=== PATIENT | female | born 1970 | race Caucasian/White ===

== ENCOUNTER 2016-07-27 02:23 | Emergency (ER) | payer MEDICAID ==
[~2016-07-27] VITALS: Ht 162.6 cm; Wt 86.2 kg
[~2016-07-27 02:23] MED LIST: CLIN150C16 PO
--- NOTE | 2016-07-27 02:54 | NUR ---
Dr. Yoder in room for evaluation.
[2016-07-27] MEDS ORDERED: PANTOPRAZOLE SODIUM 40 MG VIAL IV ONE (03:00)
[2016-07-27 04:14] LABS: *BILIRUBIN,URIN NEGATIVE (NEGATIVE); *BLOOD, URINE NEGATIVE (NEGATIVE); *COLOR,URINE YELLOW (YELLOW); *KETONES,URINE NEGATIVE (NEGATIVE); *PROTEIN,URINE 1+ (NEGATIVE); LEUKOCYTE ESTERASE ,URINE NEGATIVE (NEGATIVE); NITRITE, URINE NEGATIVE (NEGATIVE); UGLUCOSE NEGATIVE (NEGATIVE)
[2016-07-27 04:20] LABS: *CLARITY,URINE HAZY (CLEAR)
[2016-07-27 04:22] LABS: *URINE HCG, QUAL NEGATIVE (NEGATIVE); BACTERIA,URINE MODERATE /HPF (NONE SEEN); MUCUS,URINE MODERATE /LPF (0-FEW); RBC,URINE 0-3 /HPF (0-3); SQUAMOUS EPITHELIAL CELL,UR MANY /HPF (NONE SEEN); WBC,URINE 0-3 /HPF (0-3)
--- NOTE | 2016-07-27 04:25 | NUR ---
Blood drawn by RADHA.
[2016-07-27] MEDS ORDERED: OLANZAPINE 5 MG TABLET PO ONE (04:30)
[2016-07-27] MEDS ORDERED: OLANZAPINE 5 MG TABLET ONE (04:42)
[2016-07-27] MEDS ORDERED: PANTOPRAZOLE SODIUM 40 MG VIAL ONE (04:42)
[2016-07-27 04:45] LABS: BASOPHILS # (AUTO) 0.1 K/uL (0.0-8.0); BASOPHILS % (AUTO) 0.7 % (0.0-2.0); EOSINOPHILS # (AUTO) 0.1 K/uL (0.0-0.7); EOSINOPHILS % (AUTO) 0.5 % (0.0-7.0); HEMATOCRIT 41.6 % (37-47); HEMOGLOBIN 13.7 G/DL (12.0-16.0); LYMPHOCYTES # (AUTO) 0.6 K/UL (0.8-4.8); LYMPHOCYTES % (AUTO) 5.5 % (20.5-51.5); MEAN CORPUSCULAR HEMOGLOBIN 26.5 UUG (27.0-31.0); MEAN CORPUSCULAR HGB CONC 33 g/dL (32.0-37.0); MEAN CORPUSCULAR VOLUME 80.2 FL (81.0-99.0); MONOCYTES # (AUTO) 0.2 K/UL (0.1-1.30); MONOCYTES % (AUTO) 1.7 % (0.0-11.0); NEUTROPHILS # (AUTO) 9.2 K/UL (1.8-8.9); NEUTROPHILS % (AUTO) 91.6 % (38.5-71.5); PLATELET COUNT (AUTO) 207 K/UL (150-450); RED BLOOD CELL COUNT(AUTO) 5.19 MIL/UL (4.2-5.4); WHITE BLOOD COUNT (AUTO) 10.2 K/UL (4.0-11.2)
[2016-07-27 05:12] LABS: ACETAMINOPHEN < 2.0 ug/mL (10-30); ETHANOL < 3 MG/DL (0-0)
[2016-07-27 05:16] LABS: BILIRUBIN,DIRECT 0.1 mg/dL (0.0-0.2); BILIRUBIN,TOTAL 0.3 mg/dL (0.2-1.0); CREATININE 0.8 mg/dL (0.6-1.3); POTASSIUM 3.5 mmol/L (3.5-5.1); TOTAL PROTEIN, SERUM 7.4 g/dL (6.4-8.2)
[2016-07-27 05:33] LABS: THYROID STIMULATING HORMONE 0.639 mIU/mL (0.358-3.740)
[2016-07-27 05:55] LABS: *AMPHETAMINE, URINE POSITIVE (NEGATIVE); *BARBITURATE, URINE NEGATIVE (NEGATIVE); *CANNABINOID, URINE NEGATIVE (NEGATIVE); *COCCAINE, URINE NEGATIVE (NEGATIVE); *OPIATE, URINE NEGATIVE (NEGATIVE); *PHENCYCLIDINE SCREEN,URINE NEGATIVE (NEGATIVE)
--- NOTE | 2016-07-27 07:03 | NUR ---
Aris Hurley called, states will be here in 45 minutes.
--- NOTE | 2016-07-27 07:32 | NUR ---
recieved pt in bed, easily arousable.
--- NOTE | 2016-07-27 08:06 | NUR ---
Aris Hurley from [facility] at the bedside for psych eval.
--- NOTE | 2016-07-27 08:24 | NUR ---
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
[2016-07-27 08:29] VITALS: BP 101/60
--- NOTE | 2016-07-27 08:29 | NUR ---
IV removed. Catheter intact and site benign. Pressure and 4x4 gauze applied to site. No bleeding noted.
--- NOTE | 2016-07-27 08:36 | NUR ---
Patient discharged to home in stable conditon. Written and verbal after care instructions given. Patient verbalizes understanding of instructions.
== END 2016-07-27 08:36 | disposition home or self-care (01) ==
LOC: ER 02:26
DX: F22 Delusional disorders (principal); F15.10 Other stimulant abuse, uncomplicated; F31.9 Bipolar disorder, unspecified; R33.9 Retention of urine, unspecified; F10.20 Alcohol dependence, uncomplicated; F17.200 Nicotine dependence, unspecified, uncomplicated
CPT/HCPCS: 36415; 51702; 80307; 83690; 84443; 84703; 85025; A4663; C1758; C9113; G0480; G0480-TC

== ENCOUNTER 2016-12-26 01:48 | Emergency (ER) | payer MEDICAID ==
[~2016-12-26] VITALS: Ht 162.6 cm; Wt 81.6 kg
[2016-12-26] MEDS ORDERED: NEOMY/BACITRA/POLYMYXIN B OINT UD PACKET TP ONE ×2 (03:15→03:28)
--- NOTE | 2016-12-26 03:29 | NUR ---
Pt ambulated to room with steady gait. Pt c/o sore to the bottom the her second right toe. Pt seen by Dr. Blanco. Right foot soaked with sterile water and hydrogen peroxide per Dr. Blanco. Triple antibiotic ointment and drsg applied to the second toe on right foot. Pt stable for discharge per MD. Pt given ACI. Pt verbalized understanding of dc instructions. Pt ambulated out of ER with steady gait.
[2016-12-26 03:44] VITALS: BP 133/88
== END 2016-12-26 03:26 | disposition home or self-care (01) ==
LOC: ER 01:50
DX: S91.114A Laceration without foreign body of right lesser toe(s) without damage to nail, initial encounter (principal); F17.200 Nicotine dependence, unspecified, uncomplicated; X58.XXXA Exposure to other specified factors, initial encounter; Y93.89 Activity, other specified; Y92.89 Other specified places as the place of occurrence of the external cause; Y99.8 Other external cause status
CPT/HCPCS: 99283; A4217 ×2; A4663

== ENCOUNTER 2017-09-11 05:21 | Emergency (ER) | payer BC, OTHER ==
[~2017-09-11] VITALS: Ht 162.6 cm; Wt 81.6 kg
--- NOTE | 2017-09-11 05:54 | NUR ---
Dr. Blanco at bedside for MSE.
--- NOTE | 2017-09-11 06:01 | NUR ---
Patient discharged to home in stable conditon. Written and verbal after care instructions given. Patient verbalizes understanding of instructions. Patient able to ambulate unassisted with a steady gait. Patient left with all personal belongings.
[2017-09-11 06:20] VITALS: BP 142/86
== END 2017-09-11 06:01 | disposition home or self-care (01) ==
LOC: ER 05:21
DX: L03.115 Cellulitis of right lower limb (principal); I10 Essential (primary) hypertension; F17.200 Nicotine dependence, unspecified, uncomplicated; Z88.0 Allergy status to penicillin
CPT/HCPCS: 99283; A4663

== ENCOUNTER 2017-09-13 05:43 | Emergency (ER) | payer OTHER ==
[~2017-09-13] VITALS: Ht 162.6 cm; Wt 81.6 kg
--- NOTE | 2017-09-13 06:11 | NUR ---
PT IN BED. PT AAOX4. PT PRESENTING TO ED WITH COMPLAINT OF DYSPEPSIA. LUNG ARE CLEAR BILATERALLY AND BREATH SOUNDS ARE EVEN AND UNLABORED. NO SIGNS OF DISTRESS WITNESSED AT THIS TIME.
[2017-09-13 06:46] VITALS: BP 142/88
== END 2017-09-13 06:40 | disposition home or self-care (01) ==
LOC: ER 05:46
DX: R11.0 Nausea (principal); T37.0X5A Adverse effect of sulfonamides, initial encounter; L03.115 Cellulitis of right lower limb; I10 Essential (primary) hypertension; F17.200 Nicotine dependence, unspecified, uncomplicated; F15.10 Other stimulant abuse, uncomplicated; Z88.0 Allergy status to penicillin; Y92.89 Other specified places as the place of occurrence of the external cause
CPT/HCPCS: A4663